=== PATIENT | female | born 1960 | race Caucasian/White ===

== ENCOUNTER → 2019-01-14 13:41 | Outpatient (CLI) | payer BC ==
--- NOTE | 2019-01-17 09:47 | EC ---
PATIENT:BLAS GARCIA DATE OF SERVICE: 01/14/19 SEX: F MEDICAL RECORD: [id number] DATE OF : 64 LOCATION:D[facility] AGE OF PATIENT: 58 ADMISSION DATE: 01/14/19 REFERRING PHYSICIAN: INTERPRETING PHYSICIAN: YUE ZEPEDA MD ECHOCARDIOGRAM REPORT ECHO CHARGES 4 ECHO COMPLETE Date: 01/14/19 CLINICAL DIAGNOSIS: MURMUR ECHOCARDIOGRAPHIC MEASUREMENTS (adult normal given) AC root (d.<3.7cm) 3.0 cm LV Septum d (<1.2 cm> 1.1 cm Valve Excursion 1.7 cm LV Septum (systole) 1.2 cm Left Atria (s.<4.0cm> 3.6 cm LVPW d(<1.2cm) 1.4 cm RV (d.<2.3cm) 2.7 cm LVPW (sytole) 1.8 cm LV diastole(<5.6CM) 4.4 cm MV E-F(>70mm/sec) cm LV systole 3.2 cm LVOT Diameter 1.7 cm MV exc.(>10mm) 1.4 cm Est.ejection fraction (50-75%) % DOPPLER: LVIT cm/sec A 66.0 cm/sec E 82.0 cm/sec LA cm/sec RVSP 24 mmHg LVOT 112 cm/sec AOP1/2T m/s Asc. Ao 125 cm/sec RVOT 1405 cm/sec RA cm/sec PA 128 cm/sec AV Gradient Peak 6.26 mmHg AV Mean 3.25 mmHg AV Area 2.1 cm MV Gradient Peak 3.46 mmHg MV Mean 1.56 mmHg MV Area cm COMMENTS: Seo Marketing Specialist: 2 CANDIDO ETIENNE Cooker Syrup: 3 Dr. Jauregui TAPE# PACS Pericardial Effusion N DATE OF SERVICE: Adequate 2D, color flow, spectral Doppler, and M-Mode. No LVH. LV internal dimension is normal. Wall motion is normal. EF is greater than or equal to 55%. Aortic valve is tricuspid. No evidence of stenosis by Doppler interrogation. Left atrium is normal. Mitral valve shows no prolapse. Trivial MR. Right-sided chambers are grossly normal. Trivial TR. TRANSINT:[id number] Voice Confirmation ID: [id number] DOCUMENT ID: [id number] ECHOCARDIOGRAM REPORT [id number] BLAS GARCIA YUE ZEPEDA MD at 0947 CC: [id number] DICTATION DATE: 01/15/19 1355 PUNCHER AND FASTENER: 01/15/19 1430 DEP CLI 01/14/19 [id number] [place] [address]
--- NOTE | 2019-01-21 13:05 | ST ---
PATIENT:BLAS GARCIA MEDICAL RECORD: [id number] SEX: F LOCATION:[facility] ORDER #: ADMISSION DATE: 01/14/19 AGE OF PATIENT: 58 REFERRING PHYSICIAN: INTERPRETING PHYSICIAN: YUE ZEPEDA MD DATE OF SERVICE: 01/14/2019 TREADMILL STRESS TEST Baseline ECG is normal. She exercised for 5 minutes on George protocol. Maximum heart rate 171 beats per minute, greater than 100% of max predicted. No ECG changes of ischemia. No symptoms of ischemia. Normal blood pressure response to exercise. No arrhythmias noted. Poor exercise tolerance for age. TRANSINT:[id number] Voice Confirmation ID: [id number] DOCUMENT ID: [id number] YUE ZEPEDA MD at 1305 CC: [id number] DICTATION DATE: 01/20/19 1513 UTILITY BAG ASSEMBLER: 01/20/19 1653 [facility] CLI 01/14/[address] [address]
== END | disposition home or self-care (01) ==
LOC: D.HCCARDIO 13:41
PROVIDERS: ATTEND Internal Medicine Interventional Cardiology
DX: R01.1 Cardiac murmur, unspecified (principal)

== ENCOUNTER → 2019-02-13 10:54 | Outpatient (CLI) | payer BC ==
[~2019-02-13] VITALS: Ht 167.6 cm; Wt 77.7 kg
--- NOTE | ~2019-02-13 | HEMODYNAMI ---
PATIENT:BLAS GARCIA MEDICAL RECORD: [id number] : 64 LOCATION:[facility] ADMISSION DATE: 02/13/19 Generatedon:02/13/201914:51 Patient name: BLAS GARCIA Patient #: [id number] SSN: : Date of study: 02/13/2019 Page: Of Hemodynamic Procedure Report Patient Data Patient Demographics Procedure consent was obtained First Name: BLAS Gender: Female Last Name: RADHA : 1960 Middle Initial: OREN Age: 58 year(s) Patient #: [id number] Race: Unknown Additional ID: [id number] Contact details Address: [address] [place] [address] [place] State: [place] City: [facility] Zip code: [address] Admission Admission Data Admission Date: 02/13/2019 Admission Time: 10:54 Admit Source: Other Height (in.): 66.14 BSA: 1.88 (m2) Height (cm.): 168 BMI: 27.64 (kg/m2) Weight (lbs.): 171.96 Weight (kg.): 78 Lab Results Lab Result Date: 02/13/2019 Lab Result Time: 0:00 Biochemistry Name Units Result Min Max BUN mg/dl 25 --(----)-* 7 18 Creatinine mg/dl 1 --(--*-)-- 0.6 1.3 CBC Name Units Result Min Max Hemoglobin g/dl 14.2 --(*---)-- 13.5 17.5 Procedure Procedure Types Cath Procedure Diagnostic Procedure LHC LHC w/Coronaries Procedure Description Procedure Date Procedure Date: 02/13/2019 Procedure Start Time: 14:36 Procedure End Time: 14:49 Procedure Staff Name Function Cesar Hale MD Performing Physician Aleksandra Dean RT Monitor Iman Perez RT Scrub Lety Aragon RN Nurse Procedure Data Cath Procedure Fluoroscopy Diagnostic fluoroscopy Total fluoroscopy Time: 2.2 time: 2.2 min min Diagnostic fluoroscopy Total fluoroscopy dose: 243 dose: 243 mGy mGy Contrast Material Contrast Material Type Amount (ml) Isovue 300 39 Entry Location Entry Primary Successful Side Size Upsize Upsize Entry Closure Negron ccessful Closure Location (Fr) 1 (Fr) 2 (Fr) Remarks Device Remarks Radial Right 6 Fr Mechanical artery Short Compression Estimated blood loss: 5 ml Diagnostic catheters Device Type Used For End Catheter Placement DIAGNOSTIC Headrick 110cm 5 Multi-vessel Fr catheter ([id number]) Angiography DIAGNOSTIC Pigtail 5Fr Multi-vessel catheter ([id number]) Angiography Procedure Complications No complications Procedure Medications Medication Administration Route Dosage 0.9% NaCl I.V. 100 ml/hr Oxygen etCO2 Nasal cannula 2 l/min Lidocaine 2% added to field 20 Heparin Flush Bag added to field 2 bags (1000units/500ml NS) Radial Cocktail added to field 1 syringe (Verapamil 2mg/Nitro 400mcg/Heparin 1500units) Versed I.V. 2 mg Fentanyl I.V. 50 mcg Versed I.V. 2 mg Fentanyl I.V. 50 mcg Versed I.V. 2 mg Fentanyl I.V. 50 mcg Fentanyl I.V. 50 mcg Hemodynamics Rest BSA: 1.88 (m2) HGB: 14.2 (g/dl) O2 Consumption: Estimated: 184.67 (ml/min) O2 Co nsumption indexed: Estimated:98.23 (ml/min/m) Heart Rate: 76 (bpm) Pressure Samples Time Site Value (mmHg) Purpose Heart Use Rate(bpm) 14:46 LV 93/5,11 Snapshot 83 Gradients Valve Time Site Site Mean SEP/DFP Peak To Heart Use 1 2 (mmHg) (sec/min) Peak Rate (mmHg) (bpm) Aortic 14:46 LV AO 89 Snapshots Pre Cath Intra NCS Post Cath Vital Signs Time Heart Resp SPO2 etCO2 NIBP (mmHg) Rhythm Pain Sedation Rate (ipm) (%) (mmHg) Status Level (bpm) 14:03:31 84 19 100 34.4 144/91(110) NSR 0 (11) 10(A) , No pain 14:07:40 86 18 99 31.4 122/83(93) NSR 0 (11) 10(A) , No pain 14:11:40 78 1620 99 29.2 119/80(98) NSR 0 (11) 10(A) , No pain 14:15:35 76 10 96 32.2 106/83(96) NSR 0 (11) 10(A) , No pain 14:20:24 73 17 97 32.2 107/63(78) NSR 0 (11) 10(A) , No pain 14:24:14 84 12 98 31.5 112/75(87) NSR 0 (11) 10(A) , No pain 14:28:11 74 14 98 33 99/60(76) NSR 0 (11) 10(A) , No pain 14:32:07 72 17 96 35.2 101/59(76) NSR 0 (11) 10(A) , No pain 14:36:19 94 14 98 33 130/81(110) NSR 0 (11) 10(A) , No pain 14:40:10 74 19 98 31.4 125/80(108) NSR 0 (11) 10(A) , No pain 14:44:06 80 18 96 30 119/71(84) NSR 0 (11) 10(A) , No pain 14:48:07 89 9 98 31.4 114/60(79) NSR 0 (11) 10(A) , No pain Medications Time Medication Route Dose Verified Delivered Reason Notes E ffectiveness by by 14:06:39 0.9% NaCl I.V. 100 Cesar Lombardoa used for ml/hr Geoffrey Mahesh procedure MD RUIZ 14:06:46 Oxygen etCO2 2 l/min Cesar Lety used for Nasal Geoffrey Mahesh procedure cannula MD RUIZ 14:06:52 Lidocaine 2% added 20ml Cesar Guerrero for local to vial Geoffrey Geoffrey anesthetic field MD FERGUSON 14:06:57 Heparin Flush added 2 bags Cesar Guerrero used for Bag to Geoffrey Geoffrey procedure (1000units/500ml field MD FERGUSON NS) 14:09:28 Radial Cocktail added 1 Cesar Guerrero used for (Verapamil to syringe Geoffrey Geoffrey procedure 2mg/Nitro field MD FERGUSON 400mcg/Heparin 1500units) 14:23:33 Versed I.V. 2 mg Cesar Lety for Geoffrey Mahesh sedation MD RUIZ 14:23:38 Fentanyl I.V. 50 mcg Cesar Lombardoa for Geoffrey Mahesh sedation MD RUIZ 14:29:21 Versed I.V. 2 mg Cesar Lety for [facility] Aragon sedation MD RUIZ 14:29:25 Fentanyl I.V. 50 mcg Cesar Lety for [facility] Aragon sedation MD RUIZ 14:33:04 Versed I.V. 2 mg Cesar Lety for [facility] Robbin sarabia MD, RN 14:33:12 Fentanyl I.V. 50 mcg Cesar Lety for [facility] sarabia MD, RN 14:39:31 Fentanyl I.V. 50 mcg Cesar Lety for [facility] sarabia MD, RN Procedure Log Time Note 13:43:34 Diagnostic Cath Status : Elective 13:43:49 Iman Chris RT(R) sent for patient. Start room use. 13:43:50 Time tracking: Regular hours (M-F 7:00 - 5:00) 13:43:54 Plan of Care:Hemodynamics will remain stable., Cardiac rhythm will remain stable., Comfort level will be maintained., Respiratory function will remain adequate., Patient/ family verbilizes understanding of procedure., Procedure tolerated without complication., Recovers from procedure without complications.. 13:45:42 Lab Result : Creatinine 1 mg/dl 13:45:42 Lab Result : BUN 25 mg/dl 13:45:42 Lab Result : Hemoglobin 14.2 g/dl 13:45:46 Admit Source: Other 13:45:53 Patient Height : 66.14 inches 13:45:59 Patient Weight : 171.96 lbs 14:02:29 Vital chart was started 14:05:29 Patient received from Pre/Post Procedure Room to [facility] 2 Alert and oriented. Tansferred to table in Supine position. 14:05:34 Warm blankets applied, and mela hugger turned on for patient comfort. 14:05:43 Correct patient and procedure confirmed by team. 14:05:45 Signed procedure consent form obtained from patient. 14:05:46 ECG and BP/O2 sat monitors applied to patient. 14:05:49 Baseline sample Acquired. 14:05:52 Rhythm: sinus rhythm 14:05:54 Full Disclosure recording started 14:05:58 H&P Date Dictated: 02/13/2019 Within 30 days and on chart., H&P Addendum completed by physician on day of procedure. (MUST COMPLETE FOR ALL OUTPATIENTS). 14:05:59 Pre-procedure instructions explained to patient. 14:06:00 Pre-op teaching completed and patient verbalized understanding. 14:06:03 Family in patients room. 14:06:04 Patient NPO since Midnight. 14:06:07 Is the patient allergic to Iodine/contrast media? No. 14:06:08 Was the patient premedicated? No 14:06:23 Is patient on blood thinner?No 14:06:24 Patient diabetic? No. 14:06:39 0.9% NaCl 100 ml/hr I.V. was administered by Lety Aragon RN; used for procedure; 14:06:46 Oxygen 2 l/min etCO2 Nasal cannula was administered by Lety Aragon RN; used for procedure; 14:06:52 Lidocaine 2% 20ml vial added to field was administered by Cesar Hale MD; for local anesthetic; 14:06:57 Heparin Flush Bag (1000units/500ml NS) 2 bags added to field was administered by Cesar Hale MD; used for procedure; 14:08:00 Previous problem with sedation/anesthesia? No ? 14:08:02 Snore? Yes 14:08:04 Sleep apnea? No 14:08:05 Deviated septum? No 14:08:05 Opens mouth fully? Yes 14:08:06 Sticks out tongue? Yes 14:08:08 Airway obstruction? No ? 14:08:10 Dentures? No ? 14:08:19 Pre procedure: right dorsailis pedis pulse 2+ Normal; easily identifiable; not easily obliterated 14:08:22 Pre procedure: left dorsailis pedis pulse 2+ Normal; easily identifiable; not easily obliterated 14:08:23 Patient pain scale 0/10 ?. 14:08:32 Lab results completed and on chart. 14:08:40 Right Radial & Right Groin area was prepped with chlora-prep and draped in sterile fashion 14:08:42 Alarms reviewed by R. N. 14:08:43 Sharps counted by scrub and verified by R.N. 14:09:28 Radial Cocktail (Verapamil 2mg/Nitro 400mcg/Heparin 1500units) 1 syringe added to field was administered by Cesar Hale MD; used for procedure; 14:: Physician arrived 14:22: --------ALL STOP TIME OUT------ 14::01 Final Timeout: patient, procedure, and site verified with staff and physician. All members of the team are in agreement. 14:22:04 Right Radial & Right Groin site verified by team. 14:22:08 Fire Safety Assessment: A--An alcohol-based skin anteseptic being used preoperatively., C--Open oxygen or nitrous oxide is being used., D--An ESU, laser, or fiber-optic light is being used. 14:22:12 Physical assessment completed. ASA score P 2 - A patient with mild systemic disease as per Cesar Hale MD. 14:22:34 2) 60-89 Mildly reduced kidney function, and other findings (as for stage 1) point to kidney disease. 14:23:33 Versed 2 mg I.V. was administered by Lety Aragon RN; for sedation; 14:23:38 Fentanyl 50 mcg I.V. was administered by Lety Aragon RN; for sedation; 14:29:21 Versed 2 mg I.V. was administered by Lety Aragon RN; for sedation; 14:29:25 Fentanyl 50 mcg I.V. was administered by Lety Aragon RN; for sedation; 14:33:04 Versed 2 mg I.V. was administered by Lety Aragon RN; for sedation; 14:33:12 Fentanyl 50 mcg I.V. was administered by Lety Aragon RN; for sedation; 14:34:01 Maximum allowable contrast does (3.7 X eGFR X 0.75)169 ml. 14:34:07 Sedation plan: IV Moderate Sedation Medication:Versed, Fentanyl 14:34:12 Use device set Radial Dx or PCI 14:34:14 ACIST Syringe (98454) opened to sterile field. 14:34:14 Medline Cath Pack ([id number]) opened to sterile field. 14:34:14 Bag Decanter () opened to sterile field. 14:34:15 ACIST Hand Control (71893) opened to sterile field. 14:34:15 ACIST Manifold (31167) opened to sterile field. 14:34:16 Tegaderm 4 x 4 (1626W) opened to sterile field. 14:34:17 MBrace Wrist Support ([id number]) opened to sterile field. 14:34:19 EMERALD Guide Wire (216-135) opened to sterile field. 14:34:20 SHEATH 6FR YO (3540319) opened to sterile field. 14:35:25 Procedure started. 14:36:55 Local anesthetic to right radial artery with Lidocaine 2% by Cesar Hale MD.INITIAL ACCESS ONLY 14:37:03 A 6 Fr Short sheath was inserted into the Right Radial artery 14:39:31 Fentanyl 50 mcg I.V. was administered by Lety Aragon RN; for sedation; 14:41:32 A DIAGNOSTIC Headrick 110cm 5 Fr catheter (844383) was advanced over the wire and used for Multi-vessel Angiography. 14:43:11 LCA angiography performed. 14:43:25 Injector settings: Ml/sec: 3, Volume: 6, 14:44:12 RCA angiography performed. 14:44:15 Injector settings: Ml/sec: 3, Volume: 6, 14:44:18 Catheter removed. 14:44:38 A DIAGNOSTIC Pigtail 5Fr catheter (679052V) was advanced over the wire and used for Multi-vessel Angiography. 14:46:28 LV hemodynamics recorded. 14:46:29 LV gram done using VASQUEZ 14:46:32 Injector settings: Ml/sec: 5, Volume: 15, 14:46:40 EF : 55 % 14:46:50 Catheter removed. 14:46:59 Sheath removed intact; hemostasis achieved with Mechanical Compression to the Right Radial artery. 14:47:00 Procedure ended.(Physican Out) 14:47:43 Fluoroscopy time 02.20 minutes. 14:47:46 Fluoroscopy dose: 243 mGy 14:47:46 Flurop Dose total: 243 14:48:01 Contrast amount:Isovue 300 39ml. 14:48:05 Sharps counted by scrub and verified by R.N. 14:48:06 Insertion/operative site no bleeding no hematoma. 14:48:09 TR band inflated with 10cc of air. 14:48:32 Post procedure rhythm: unchanged. 14:48:35 Estimated blood loss: 5 ml 14:48:38 Post procedure instruction explained to patient.Patient verbalizes understanding. 14:48:39 Patient needs reinforcement of post procedure teaching. 14:49:12 Procedure and supply charges have been captured, reviewed, submitted and are correct. 14:49:17 Procedure Complication : No complications 14:49:20 Vital chart was stopped 14:49:24 Report given to Pre/Post Procedure Room. 14:49:27 Patient transfered to Pre/Post Procedure Room with Stretcher. 14:49:29 Procedure ended. 14:49:29 Full Disclosure recording stopped 14:49:33 End room use (Document Last) 14:51:28 TR BAND Standard ([id number]) opened to sterile field. Device Usage Item Name Manufacture Quantity Catalog Hospital Part Current Minima l Lot# / Number Charge Number Stock Stock Serial# Code ACIST Acist 1 41685 299092 833115 810133 20 Syringe Medical (40663) Systems Inc Medline Medline 1 [id number] 041073 26391 053764 5 Cath Pack ([id number]) Bag Microtek 1 2001S 750406 83287 682829 5 Decanter Medical Inc. () ACIST Hand Acist 1 83095 671602 268522 028506 5 Control Medical (71143) Systems Inc ACIST Acist 1 11938 144940 985763 820911 5 Manifold Medical (07676) Systems Inc Tegaderm 4 3M 1 1626W 019293 409898 649091 5 x 4 (1626W) MBrace Advanced 1 140-0250-00 262011 06336 426844 5 Wrist Vascular Support Dynamics ([id number]) EMERALD Cardinal 1 502-455 191427 841424 641644 5 Guide Wire Health (502-455) SHEATH 6FR Cardinal 1 1781641 996162 8191152 292662 5 [facility] (0770946) DIAGNOSTIC Terumo 1 40-5013 156073 286034 520768 5 Headrick 110cm 5 Fr catheter (557184) DIAGNOSTIC Cardinal 1 [id number] 299716 106512 353884 5 Pigtail 5Fr Health catheter (564980L) TR BAND Terumo 1 [id number] 869356 208671 509834 40 Standard ([id number]) Signature Audit [place] Stage Time Signature Unsigned Intra-Procedure 02/13/2019 Aleksandra Dean 2:51:53 PM RT(R) Signatures Performing Physician : Signature : Cesar Hale MD Date : Time : Monitor : Aleksandra Jermaine RT Signature : Date : Time : Nurse : Lety Aragon RN Signature : Date : Time : [address] [place] [address]
[~2019-02-13 10:54] MED LIST: AMBIEN10 MG PO; CARVEDILOL TAB 3.1 PO; IMITREX50 MG PO; MELATONIN10 M1 PO; TOPIRAMATE TAB 100 PO; VALTREX1000 MG PO; VITAMIN D250000 UNIT; VITAMIN D31000 UNI2 PO
[2019-02-13 11:32] VITALS: BP 140/81; Ht 167.6 cm; Wt 77.7 kg
[2019-02-13 11:47] LABS: BASOPHILS 0.2 % (0-2); EOSINOPHILS 1.8 % (0-7); HEMATOCRIT 40.9 % (36.0-48.0); HEMOGLOBIN 14.2 g/dL (12-16); MCH 32.2 pg (26.0-34.0); MCHC 34.7 g/dL (31.0-37.0); MCV 92.7 fL (80.0-100.0); MEAN PLATELET VOLUME 10.3 fL (7.4-10.4); PLATELET COUNT 217 10x3/uL (130-400); RBC 4.41 10x6/uL (4.00-5.40); RDW 11.9 % (11.5-14.5); WBC 5.7 10x3/uL (4.8-10.8)
[2019-02-13 11:58] LABS: ANION GAP 15.4 mmol/L (8-16); CALCIUM 9.4 mg/dL (8.5-10.1); CARBON DIOXIDE 23.7 mmol/L (21.0-32.0); POTASSIUM - SERUM 4.1 mmol/L (3.5-5.1)
--- NOTE | 2019-02-13 15:15 | NUR ---
RECEIVED PT FROM RESTORATION OFFICER. PT IS ALERT, DENIES ANY C/O PAIN OR NAUSEA. TR BAND IS CDI TO RIGHT WRIST, WRIST IMMOBILZER IN PLACE. NSR, RATE 78. BP IS 103/65. FAMILY AT BEDSIDE, DR ZEPEDA HAS ROUNDED ON PT. SANDWICH AND PO FLUIDS AT BEDSIDE.
--- NOTE | 2019-02-13 15:19 | NUR ---
PT WILL SANDWICH AND PO FLUIDS WITH NO NAUSEA. TR BAND IS CDI, FINGERS WARM AND CAP REFILL IS BRISK. VSS. FAMILY AT BEDSIDE.
--- NOTE | 2019-02-13 15:42 | NUR ---
ALERT AND WITHOUT ANY C/O. TR BAND IS CDI, FINGERS WARM. VSS. CALL LIGHT IN REACH.
--- NOTE | 2019-02-13 16:28 | NUR ---
4 CC OF AIR WEANED FROM TR BAND WITH NO BLEEDING NOTED. PT IS ALERT AND DENIES ANY C/O. DAUGHTER AT BEDSIDE. VSS.
--- NOTE | 2019-02-13 17:00 | NUR ---
1645 ALL REMAINING AIR WEANED FROM TR BAND WITH NO BLEEDING NOTED. FINGERS WARM AND CAP REFILL IS BRISK. RADIAL PULSE PALPABLE. PT DENIES ANY NV DEFICIT TO HAND. DC INSTRUCTIONS REVIEWED WITH PT AND DAUGHTER AND BOTH VERBALIZE UNDERSTANDING. IV DC'D WITH CATH INTACT AND PT IS DRESSING FOR DC TO HOME.
--- NOTE | 2019-02-13 17:14 | NUR ---
1705 PT HAS AMBULTED TO THE BATHROOM AND VOIDED QS. DENIES ANY C/O. 2X2 AND TEGADERM DRESSING CDI TO RIGHT WRIST, RADIAL PULSE PALPABLE. FINGERS WARM AND CAP REFILL IS BRISK. IMMOBILIZER IN PLACE.PT ESCORTED TO PRIVATE AUTO VIA WC BY NURSE WITH DAUGHTER DRIVING HER HOME.
--- NOTE | 2019-02-17 08:31 | OP ---
PATIENT NAME: BLAS GARCIA MEDICAL RECORD: [id number] :64 LOCATION:[facility] ADMISSION DATE: SURGEON: YUE ZEPEDA MD DATE OF OPERATION: 02/13/2019 PROCEDURE: Left heart catheterization, selective coronary angiography, right radial approach. CATHETERS: [place] catheter and radial sheath as well as pigtail catheter. The procedure was well tolerated. The patient was returned to land. Sheath was removed. TR band was placed. FINDINGS: Left ventriculography in 30-degree VASQUEZ view: Normal wall motion and normal systolic function. CORONARY ANATOMY: LEFT MAIN: Left main is free of disease. LAD: Free of disease in the diagonal system. CIRCUMFLEX: Free of disease in the marginal system. RIGHT CORONARY ARTERY: Dominant artery, gives rise to PDA, free of disease. IMPRESSION: Normal LV systolic function. Normal coronary anatomy. TRANSINT:[id number] Voice Confirmation ID: [id number] DOCUMENT ID: [id number] YUE ZEPEDA MD at 0831 CC: [id number] DICTATION DATE: 02/13/19 1458 ASSISTANT RESEARCH SCIENTIST: 02/13/19 1507 DEP CLI 02/13/19 [id number] [place] [address]
== END | disposition home or self-care (01) ==
LOC: D.CATH 10:54
PROVIDERS: ATTEND Internal Medicine Interventional Cardiology
DX: I20.9 Angina pectoris, unspecified (principal); Z01.812 Encounter for preprocedural laboratory examination

== ENCOUNTER → 2020-03-25 18:10 | Outpatient (CLI) | payer BC ==
[2019-02-13 11:32] VITALS: BMI 27.6
[2020-03-25 19:07] LABS: CHOL - HDL RATIO 4.3 ratio (2.3-4.1)
== END | disposition home or self-care (01) ==
LOC: D.LABREF 18:10
PROVIDERS: ATTEND Internal Medicine Interventional Cardiology
DX: I10 Essential (primary) hypertension (principal)

== ENCOUNTER → 2020-04-01 09:15 | Outpatient (CLI) | payer BC ==
[2019-02-13 11:32] VITALS: BMI 27.6
== END | disposition home or self-care (01) ==
LOC: D.RAD 09:15
PROVIDERS: ATTEND Obstetrics & Gynecology
DX: R06.00 Dyspnea, unspecified (principal)

== ENCOUNTER → 2020-04-02 13:22 | Outpatient (CLI) | payer BC ==
[2019-02-13 11:32] VITALS: BMI 27.6
== END | disposition home or self-care (01) ==
LOC: D.LABREF 13:22
PROVIDERS: ATTEND Internal Medicine Pulmonary Disease
DX: R06.00 Dyspnea, unspecified (principal)